=== PATIENT | female | born 1965 | race Caucasian/White ===

== ENCOUNTER → 2020-06-13 | Outpatient (CLI) | payer OTHER ==
--- NOTE | 2020-06-13 12:46 | KCIC ---
Bilateral digital screening mammograms with 3-D tomosynthesis: Reason for examination: Routine screening. Comparison is made to previous studies dated 01/09/2019 and 01/26/2019. Bilateral mammograms in CC and oblique projections were obtained with 2-D imaging and 3-D tomosynthesis imaging on a Siemens Inspiration unit and reviewed on the workstation. Interpretation was made with the benefit of CAD. The skin and nipples show no abnormalities. No abnormal axillary lymph nodes are seen. The breast parenchyma is heterogeneously dense. (Breast density: Category C.) There continues to be some nodularity posteriorly at the 12:00 C position of the right breast centrally. This however does appear to be less prominent than on previous exam and probably represents recurrence of the previously aspirated cyst. There is also a 1.7 cm circumscribed nodular density in the subareolar 9:00 position of the left breast. This may also represent a cyst. Recommend further evaluation with ultrasound. There are no other dominant masses, suspicious calcifications or architectural distortion. Impression: Small nodule in the 12:00 C position centrally in the right breast is again evident consistent with a recurrent cyst. Additional 1.7 cm circumscribed nodule in the subareolar 9:00 position of the left breast which may also represent a cyst. Recommend further evaluation with ultrasound. Your patient's mammogram demonstrates that she has dense breast tissue (breast density category C or D), which could hide abnormalities, and if she has other risk factors for breast cancer that have been identified, she might benefit from supplemental screening tests that may be suggested by you as her ordering physician. Dense breast tissue, in and of itself, is a relatively common condition. Therefore, this information is not provided to cause undue concern, but rather to raise your awareness and to promote discussion with your patient regarding the presence of other risk factors, in addition to dense breast tissue. Your patient's mammography results will be sent to her. BI-RAD Category 0: Incomplete. Needs additional imaging evaluation. "Our facility is accredited by the [employer] Mammography [employer]." This patient's information has been entered into a reminder system for the patient to be notified with the results of her examination and a target date for the next mammogram. Electronically signed by: Joann Amin MD (06/13/2020 12:43 PM) [id number]
== END ==
LOC: KCIC MAMMO 08:50
PROVIDERS: ATTEND Family Medicine
DX: Z12.31 Encounter for screening mammogram for malignant neoplasm of breast (principal); N64.89 Other specified disorders of breast
CPT/HCPCS: 77063; 77067

== ENCOUNTER → 2020-07-04 | Outpatient (CLI) | payer OTHER ==
--- NOTE | 2020-07-04 12:38 | RAD ---
Examination: Limited bilateral breast ultrasound. INDICATION: Screening recall for bilateral breast nodules. COMPARISON: Mammograms of 01/09/2019 and 06/13/2020 and right breast ultrasound of 01/19/2019 and right breast cyst aspiration images of 01/26/2019 TECHNIQUE: Targeted ultrasound of the right breast including the retroareolar region (which was marked on the recalled screening examination), and the 12:00 right breast position was performed. Targeted ultrasound of the subareolar breast was also performed. FINDINGS: Ultrasound subareolar right breast revealed prominent subareolar ducts with no discrete mass or suspicious sonographic findings. Dense shadowing in the retroareolar breast is evident, physiologic. Exam by the technologist revealed no palpable abnormality. At the 12:00 right breast, sonographically benign 5 mm cyst was identified 4 cm from the nipple. Additional effort at identifying the cysts in the deep subareolar right breast was not pursued as they had shown a benign mammographic interval change and were not annotated as a finding of interest for further imaging evaluation at this visit. Ultrasound subareolar left breast revealed dense subareolar fibroglandular tissue with no mass or suspicious sonographic findings. Sonographic survey of the left axilla revealed no adenopathy. IMPRESSION: Benign findings on bilateral targeted breast ultrasound. No evidence of malignancy. Recommend return to screening. Discussed with patient. I also encouraged her to maintain self breast awareness and to report any symptoms promptly to her referring physician. BI-RADS Category 2 Benign findings Patient entered into a reminder system with targeted due date for next mammogram. Electronically signed by: Thaddeus Fox MD (07/04/2020 12:35 PM) [id number]
== END ==
LOC: US 08:43
PROVIDERS: ATTEND Family Medicine
DX: N60.01 Solitary cyst of right breast (principal)
CPT/HCPCS: 76641-50